=== PATIENT | male | born 1940 | race Caucasian/White ===

== ENCOUNTER → 2019-07-23 11:07 | Outpatient (BNVA) | payer MEDICARE, SELFPAY | PROVIDERS: Family Provider Family Medicine; PCP Family Medicine; Visit Provider Family Medicine | DX: M53.3 Sacrococcygeal disorders, not elsewhere classified (principal); M54.16 Radiculopathy, lumbar region; I10 Essential (primary) hypertension; E78.2 Mixed hyperlipidemia; N52.1 Erectile dysfunction due to diseases classified elsewhere; R74.8 Abnormal levels of other serum enzymes | CPT/HCPCS: 80048 ==

== ENCOUNTER → 2020-01-22 11:20 | Outpatient (BNVA) | payer MEDICARE, SELFPAY | PROVIDERS: Family Provider Family Medicine; PCP Family Medicine; Visit Provider Family Medicine | DX: I10 Essential (primary) hypertension (principal); E78.2 Mixed hyperlipidemia | CPT/HCPCS: 80053; 80061 ==

== ENCOUNTER → 2021-01-13 11:30 | Outpatient (BNVA) | payer MEDICARE, SELFPAY | PROVIDERS: Family Provider Family Medicine; PCP Family Medicine; Visit Provider Family Medicine | DX: Z00.00 Encounter for general adult medical examination without abnormal findings (principal); I10 Essential (primary) hypertension; E78.2 Mixed hyperlipidemia | CPT/HCPCS: 80053; 80061 ==

== ENCOUNTER → 2021-11-13 11:04 | Outpatient (BNVA) | payer MEDICARE, SELFPAY | PROVIDERS: Family Provider Family Medicine; PCP Family Medicine; Visit Provider Emergency Medicine | DX: M79.605 Pain in left leg (principal); M53.3 Sacrococcygeal disorders, not elsewhere classified; M54.16 Radiculopathy, lumbar region | CPT/HCPCS: 73502 ==

== ENCOUNTER → 2021-12-07 10:20 | Outpatient (BNVA) | payer MEDICARE, SELFPAY | PROVIDERS: Family Provider Family Medicine; PCP Family Medicine; Visit Provider Family Medicine | DX: E78.2 Mixed hyperlipidemia (principal); M54.16 Radiculopathy, lumbar region; I10 Essential (primary) hypertension; M53.3 Sacrococcygeal disorders, not elsewhere classified | CPT/HCPCS: 80053; 80061 ==

== ENCOUNTER → 2022-12-06 10:49 | Outpatient (BNVA) | payer MEDICARE, SELFPAY | PROVIDERS: Family Provider Family Medicine; PCP Family Medicine; Visit Provider Family Medicine | DX: Z23 Encounter for immunization (principal); I10 Essential (primary) hypertension; E78.2 Mixed hyperlipidemia; N52.9 Male erectile dysfunction, unspecified; N52.1 Erectile dysfunction due to diseases classified elsewhere; L57.8 Other skin changes due to chronic exposure to nonionizing radiation | CPT/HCPCS: 80053; 80061 ==

== ENCOUNTER → 2023-12-05 10:41 | Outpatient (BNVA) | payer MEDICARE, SELFPAY | PROVIDERS: Family Provider Family Medicine; PCP Family Medicine; Visit Provider Family Medicine | DX: I10 Essential (primary) hypertension (principal); E78.2 Mixed hyperlipidemia | CPT/HCPCS: 80053; 80061 ==

== ENCOUNTER → 2023-12-16 09:21 | Outpatient (BNVA) | payer MEDICARE, SELFPAY | PROVIDERS: Family Provider Family Medicine; PCP Family Medicine; Referring Provider Family Medicine; Visit Provider Family Medicine | DX: E87.0 Hyperosmolality and hypernatremia (principal) | CPT/HCPCS: 80048 ==

== ENCOUNTER → 2025-01-01 14:58 | Outpatient (BNVA) | payer MEDICARE, SELFPAY | PROVIDERS: Family Provider Family Medicine; PCP Family Medicine; Visit Provider Family Medicine | DX: I10 Essential (primary) hypertension (principal); E78.2 Mixed hyperlipidemia | CPT/HCPCS: 80048; 80061 ==